=== PATIENT | female | born 1955 | race Caucasian/White ===

== ENCOUNTER 2022-10-24 09:06 | Outpatient (OUT) | payer MEDICARE, OTHER, SELFPAY ==
--- NOTE | 2022-10-24 09:18 | XR_ITS ---
[address] [address] Patient Name: MALINA WEATHERS MRN: [id number] date: 1955 Sex: F Assigned Patient Location: [facility] Current Patient Location: [facility] Accession/Order Number: [id number] Exam Date: 10/24/2022 09:20 Report Date: 10/24/2022 10:35 At the request of: OSMAN GALICIA Procedure: XR wrist RT min 3V PROCEDURE: XR wrist RT min 3V COMPARISON: None. HISTORY: Closed Fracture Of Distal End Right Radius S52.591A FINDINGS: BONES:No acute fracture or dislocation. Mild degenerative changes SOFT TISSUES:Negative. No visible soft tissue swelling. EFFUSION:None visible. OTHER: Negative. XR/XR wrist RT min 3V IMPRESSION: Mild degenerative changes Electronically authenticated by: SONAM LOPEZ Date: 10/24/2022 10:35
== END 2022-10-24 09:07 | disposition home or self-care (01) ==
LOC: RAD 09:07
PROVIDERS: Visit Provider Orthopaedic Surgery
DX: S52.591A Other fractures of lower end of right radius, initial encounter for closed fracture (principal)
CPT/HCPCS: 73110

== ENCOUNTER 2022-11-28 09:10 | Outpatient (OUT) | payer MEDICARE, OTHER, SELFPAY ==
--- NOTE | 2022-11-28 09:15 | XR_ITS ---
The [address] [address] Patient Name: MALINA WEATHERS MRN: [id number] date: 1955 Sex: F Assigned Patient Location: [facility] Current Patient Location: [facility] Accession/Order Number: [id number] Exam Date: 11/28/2022 09:21 Report Date: 11/28/2022 13:28 At the request of: OSMAN GALICIA Procedure: XR wrist RT min 3V PROCEDURE: XR wrist RT min 3V COMPARISON: None. HISTORY: Sprain Of Scapholunate Ligament FINDINGS: BONES:No acute fracture or dislocation. Minimal degenerative changes with marginal osteophyte formation. Focal 5 mm sclerosis lateral lunate, unchanged SOFT TISSUES:Negative. No visible soft tissue swelling. EFFUSION:None visible. OTHER: Negative. XR/XR wrist RT min 3V IMPRESSION: Mild degenerative changes Electronically authenticated by: SONAM LOPEZ Date: 11/28/2022 13:28
== END 2022-11-28 09:11 | disposition home or self-care (01) ==
LOC: RAD 09:10
PROVIDERS: Visit Provider Orthopaedic Surgery
DX: S63.511A Sprain of carpal joint of right wrist, initial encounter (principal); S69.91XA Unspecified injury of right wrist, hand and finger(s), initial encounter; S52.591A Other fractures of lower end of right radius, initial encounter for closed fracture
CPT/HCPCS: 73110

== ENCOUNTER 2023-10-27 17:19 | Emergency (ER) | payer MEDICARE, OTHER, SELFPAY ==
[2023-10-27 17:40] VITALS: BP 153/70; PULSE 67; TEMP 37.1; O2SAT 100; BMI 19.7
--- NOTE | 2023-10-27 17:46 | XR_ITS ---
[address] [address] Patient Name: MALINA WEATHERS MRN: [id number] date: 1955 Sex: F Assigned Patient Location: ER Current Patient Location: ED.MAIN Accession/Order Number: [id number] Exam Date: 10/27/2023 18:42 Report Date: 10/27/2023 19:30 At the request of: JEREMIAH GONSALES Procedure: XR ankle RT min 3V IMAGES REVIEWED: XR foot RT min 3V, XR ankle RT min 3V COMPARISON: None available. CLINICAL INDICATION: injury c/o pain FINDINGS/IMPRESSION: 1. No evidence of acute osseous abnormality of the right ankle or right foot. 2. Slight ankle-foot soft tissue swelling. 3. Calcaneal enthesopathy. Accessory navicular. Bones appear slightly osteopenic. Electronically authenticated by: RHETT LOVELL Date: 10/27/2023 19:30
--- NOTE | 2023-10-27 17:46 | XR_ITS ---
[address] [address] Patient Name: MALINA WEATHERS MRN: [id number] date: 1955 Sex: F Assigned Patient Location: ER Current Patient Location: ED.MAIN Accession/Order Number: [id number] Exam Date: 10/27/2023 18:42 Report Date: 10/27/2023 19:30 At the request of: JEREMIAH GONSALES Procedure: XR foot RT min 3V IMAGES REVIEWED: XR foot RT min 3V, XR ankle RT min 3V COMPARISON: None available. CLINICAL INDICATION: injury c/o pain FINDINGS/IMPRESSION: 1. No evidence of acute osseous abnormality of the right ankle or right foot. 2. Slight ankle-foot soft tissue swelling. 3. Calcaneal enthesopathy. Accessory navicular. Bones appear slightly osteopenic. Electronically authenticated by: RHETT LOVELL Date: 10/27/2023 19:30
--- NOTE | 2023-10-27 18:36 | PC.NURSE ---
pt states was walking on sidewalk, right foot slipped between sidewalk and mulch. pt felt a pop sensation in foot. pt c/o right foot pain that is underneath foot.
--- NOTE | 2023-10-27 19:06 | ED.LOWEXI1 ---
HPI HPI - Extremity Injury (Lower) General Chief Complaint: Extremity Injury, Lower Stated Complaint: le injury Time Seen by Provider: 10/27/23 17:48 Source: patient Mode of arrival: walk-in Limitations: no limitations History of Present Illness HPI Narrative: Patient is a 68-year-old female presents to the ER with concerns of right foot and ankle pain. Patient states she was walking along the sidewalk wearing tennis shoes when she missed stepped rolling her foot and ankle. Pain is well localized to the midfoot, pain with ambulation and swelling since initial injury. She denies any head or neck injury. She denies prior history of ankle injuries. Patient brought in by her spouse for evaluation. Patient denies injury to her knee or hip. Pain is moderate worse with weightbearing and nonradiating. I feel it on the sides of my ankle, but the main pain is here. ( points to mid foot 1st/ 2nd MT) Injury: Right: ankle and foot Related Data Previous Rx's ?Medication ?Instructions ?Recorded ibuprofen 600 mg tablet 600 mg PO TID PRN pain #30 tabs 10/27/23 Allergies Allergy/AdvReac Type Severity Reaction Status Date / Time amlodipine AdvReac Severe low blood Verified 10/27/23 17:46 pressure nifedipine AdvReac Severe low blood Verified 10/27/23 17:45 pressure Opioid HPI Opioid Management Most Recent Pain and Opioid Data: No Data to Display Review of Systems ROS Constitutional Denies: fever or chills Eyes Denies: change in vision or blurry vision Ears, nose, mouth, and throat Denies: throat pain or neck pain Cardiovascular Denies: chest pain or palpitations Respiratory Denies: shortness of breath or cough Gastrointestinal Denies: abdominal pain or nausea Musculoskeletal Reports: extremity pain; Denies: back pain or neck pain Integumentary/Breast Denies: rash Psychiatric Denies: anxiety Exam Narrative Exam Narrative: Vital signs reviewed and nurse's notes. The patient is not hypoxic. General: Alert, no acute distress, patient resting comfortably Skin: warm, intact, no pallor noted Head: Normocephalic, atraumatic Eye: Normal conjunctiva, no exudates Respiratory: No acute distress, lungs CTA Musculoskeletal: No evidence of deformity to the right foot or ankle, there is mild swelling noted at the midfoot. Tenderness present at the midfoot base of first second and third metatarsal. Mild soreness with metatarsal squeeze. No tenderness to the calcaneus. Achilles is nontender. No tenderness noted to the proximal fibular. There is no pain with calcaneal squeeze, achilles tendon. compartments soft. no defect is palpated at achilles . The patient has no pelvic instability. The patient has no shortening or rotation noted to the bilateral lower extremities. Neurological: alert and orient x4, normal sensory and motor observed. Psychiatric: Cooperative Constitutional Vital Signs, click to edit/add: Last Vital Signs Temp 98.8 F 10/27/23 17:40 Pulse 67 10/27/23 17:40 Resp 16 10/27/23 17:40 BP 153/70 H 10/27/23 17:40 Pulse Ox 100 10/27/23 17:40 O2 Del Method Room Air 10/27/23 17:40 Course Vital Signs Vital signs: Vital Signs Temperature 98.8 F 10/27/23 17:40 Pulse Rate 67 10/27/23 17:40 Respiratory Rate 16 10/27/23 17:40 Blood Pressure 153/70 H 10/27/23 17:40 Pulse Oximetry 100 10/27/23 17:40 Oxygen Delivery Method Room Air 10/27/23 17:40 Temperature 98.8 F 10/27/23 17:40 Pulse Rate 67 10/27/23 17:40 Respiratory Rate 16 10/27/23 17:40 Blood Pressure 153/70 H 10/27/23 17:40 Pulse Oximetry 100 10/27/23 17:40 Oxygen Delivery Method Room Air 10/27/23 17:40 MDM - Extremity Injury (Lower) MDM Narrative Medical decision making narrative: Acuity in the ER patient had delay coming back to a room. She has in no significant distress. Motrin ordered for pain. Ice pack applied. X-rays performed of the right foot and ankle. We discussed concern of tenderness to the midfoot possible Lisfranc injury or occult fracture at the second or third metatarsal base. We discussed preliminary results of the x-ray and recommend the patient be nonweightbearing focusing on ice and elevation pending follow-up, patient believes she may have access to a walker, but would like to do crutches at the moment. She was placed in a cam boot for immobilization, she may removed to check the skin and shower but use a chair to sit. Patient declines the need for stronger pain medications. She verbalized the importance of follow-up to podiatry for reevaluation and patient is aware of the need for potential further imaging given the nature of her injury. The patient is to followup with podiatry clinic on Monday for reevaluation. Or to return to the emergency department should any of the signs or symptoms worsen or new symptoms develop. Patient had questions answered. The patient agrees with the following Diagnosis and Treatment plan and the patient will be discharged home. Radiologist's interpretation pending at time of discharge. Patient was placed in a cam boot medium per her shoe size, patient notes well-fitting. She was instructed on application and use. Neurovascular intact status post application. Good alignment. Imaging Data Right Foot and ankle xray : My impression: On review of right foot and ankle x-ray no evidence of fracture, Lisfranc joint tender on exam, appropriate alignment at first and second metatarsal base,but these are nonweightbearing. Discharge Plan Discharge Stand Alone Forms: Work/School Release, Portal Instructions Chief Complaint: Extremity Injury, Lower Clinical Impression: Acute pain of right foot, Acute right ankle pain, Foot sprain Patient Disposition: Home, Self-Care Time of Disposition Decision: 19:08 Condition: Good Prescriptions / Home Meds: New ibuprofen 600 mg tablet 600 mg PO TID PRN (Reason: pain) Qty: 30 0RF Print Language: Argentine Instructions: Foot Sprain (ED) Additional Instructions: Recommend Non weight bearing (R) leg. May remove boot to shower and to sleep if elevating and ice. Concern for Ligament injury mid foot or occult fracture ( not immediately seen on xray) Call Podiatry ( [facility] on Monday for follow up) Referrals: Jeff Mccrary DPM [Physician] - 10/31/23
[2023-10-27] MEDS: IBUPROFEN 600 MG TABLET PO (19:23)
== END 2023-10-27 19:37 | disposition home or self-care (01) ==
PROVIDERS: Emergency Provider Emergency Medicine
DX: S93.601A Unspecified sprain of right foot, initial encounter (principal); X50.1XXA Overexertion from prolonged static or awkward postures, initial encounter; M25.571 Pain in right ankle and joints of right foot; M79.671 Pain in right foot
CPT/HCPCS: 73610; 73630; 99284

== ENCOUNTER 2023-11-02 13:54 | Outpatient (OUT) | payer MEDICARE, OTHER, SELFPAY ==
--- NOTE | 2023-11-02 | XR_ITS ---
The [address] [address] Patient Name: MALINA WEATHERS MRN: [id number] date: 1955 Sex: F Assigned Patient Location: Current Patient Location: Accession/Order Number: [id number] Exam Date: 11/02/2023 14:10 Report Date: 11/03/2023 06:18 At the request of: AMOL BARRIENTOS Procedure: XR foot RT min 3V PROCEDURE: XR foot RT min 3V HISTORY: RIGHT FOOT PAIN ; lateral plantar foot pain; rolled foot COMPARISON: XR foot right 10/27/2023 FINDINGS: BONES:No fracture, dislocation, bone lesion. Degenerative enthesopathic spurring of the calcaneus. SOFT TISSUES:No visible soft tissue swelling. EFFUSION:None visible. OTHER: Negative. XR/XR foot RT min 3V IMPRESSION: 1. No acute bone abnormality. Electronically authenticated by: OSMAN SANCHEZ Date: 11/03/2023 06:18
== END 2023-11-02 13:55 | disposition home or self-care (01) ==
LOC: EC 13:54
PROVIDERS: Visit Provider Physician Assistant
DX: M25.571 Pain in right ankle and joints of right foot (principal)
CPT/HCPCS: 73630

== ENCOUNTER 2023-11-23 11:03 | Outpatient (OUT) | payer MEDICARE, OTHER, SELFPAY ==
--- NOTE | 2023-11-23 | XR_ITS ---
The [address] [address] Patient Name: MALINA WEATHERS MRN: [id number] date: 1955 Sex: F Assigned Patient Location: Current Patient Location: Accession/Order Number: [id number] Exam Date: 11/23/2023 11:05 Report Date: 11/24/2023 09:48 At the request of: AMOL BARRIENTOS Procedure: XR foot RT min 3V PROCEDURE: XR foot RT min 3V HISTORY: RIGHT FOOT PAIN ; possible 5th metatarsal fracture COMPARISON: XR foot right 11/02/2023, 10/27/2023 FINDINGS: BONES:No fracture, dislocation, or significant joint space narrowing. Small degenerative osteophytes at the Achilles tendon and plantar aponeurosis insertions into the calcaneus. SOFT TISSUES:No visible soft tissue swelling. EFFUSION:None visible. OTHER: Negative. XR/XR foot RT min 3V IMPRESSION: 1. No acute bone abnormality. Specifically, no fracture of the 5th metatarsal. Electronically authenticated by: OSMAN SANCHEZ Date: 11/24/2023 09:48
== END 2023-11-23 11:04 | disposition home or self-care (01) ==
LOC: EC 11:04
PROVIDERS: Visit Provider Physician Assistant
DX: M25.571 Pain in right ankle and joints of right foot (principal)
CPT/HCPCS: 73630

== ENCOUNTER 2023-12-14 13:33 | Outpatient (OUT) | payer MEDICARE, OTHER, SELFPAY ==
--- NOTE | 2023-12-14 | XR_ITS ---
The [address] [address] Patient Name: MALINA WEATHERS MRN: [id number] date: 1955 Sex: F Assigned Patient Location: [facility] Current Patient Location: Accession/Order Number: [id number] Exam Date: 12/14/2023 13:36 Report Date: 12/18/2023 07:30 At the request of: AMOL BARRIENTOS Procedure: XR foot RT min 3V PROCEDURE: XR foot RT min 3V COMPARISON: 11/23/2023 HISTORY: RIGHT FOOT PAIN FINDINGS: BONES:No acute fracture or dislocation. No lytic or sclerotic changes. Mild enthesopathic spurring of the calcaneus at the Achilles and plantar insertions SOFT TISSUES:Negative. No visible soft tissue swelling. EFFUSION:None visible. OTHER: Negative. XR/XR foot RT min 3V IMPRESSION: No evidence of acute or subacute fracture Electronically authenticated by: SONAM LOPEZ Date: 12/18/2023 07:30
== END 2023-12-14 13:34 | disposition home or self-care (01) ==
LOC: RAD 13:34
PROVIDERS: Visit Provider Physician Assistant
DX: M25.571 Pain in right ankle and joints of right foot (principal)
CPT/HCPCS: 73630

== ENCOUNTER 2024-01-03 10:42 | Outpatient (OUT) | payer MEDICARE, OTHER, SELFPAY ==
--- NOTE | 2024-01-03 | XR_ITS ---
[address] [address] Patient Name: MALINA WEATHERS MRN: [id number] date: 1955 Sex: F Assigned Patient Location: [facility] Current Patient Location: Accession/Order Number: [id number] Exam Date: 01/03/2024 10:42 Report Date: 01/08/2024 07:30 At the request of: FARIDEH MOORE Procedure: XR foot RT min 3V PROCEDURE: XR foot RT min 3V COMPARISON: 12/14/2023 HISTORY: RIGHT FOOT PAIN FINDINGS: BONES:No acute fracture or dislocation. Moderate enthesopathic spurring of the calcaneus. Mild degenerative changes with joint space narrowing SOFT TISSUES:Negative. No visible soft tissue swelling. EFFUSION:None visible. OTHER: Negative. XR/XR foot RT min 3V IMPRESSION: Degenerative changes, no acute abnormality Electronically authenticated by: SONAM LOPEZ Date: 01/08/2024 07:30
== END 2024-01-03 10:43 | disposition home or self-care (01) ==
LOC: RAD 10:42
PROVIDERS: Visit Provider Podiatrist Foot & Ankle Surgery
DX: M25.571 Pain in right ankle and joints of right foot (principal); M19.071 Primary osteoarthritis, right ankle and foot
CPT/HCPCS: 73630